=== PATIENT | male | born 1995 | race Caucasian/White ===

== ENCOUNTER 2023-08-25 18:46 | Emergency (ER) | payer SELFPAY ==
--- NOTE | ~2023-08-25 | CT_ITS ---
Examination: CT brain and CT cervical spine without contrast. CLINICAL INDICATION: Fall, head strike. COMPARISON: None. TECHNIQUE: 5 mm thin axial and reformatted 2 mm thin sagittal and coronal images of brain were obtained. Subsequently axial 3 mm thin and reformatted 2 mm thin sagittal coronal images of cervical spine were obtained. DLP 595. This CT examination was performed using dose optimization technique as appropriate, variously including the following: Automated exposure control Adjustment of MA and/or KV according to patient size(this includes techniques or standardized protocols for targeted exams where dose is matched to indication/reason for exam; extremities or head. Use of iterative reconstruction techniques. FINDINGS: Brain: There is no acute intra-axial, extra-axial bleed, masses or midline shift. There is no acute infarct or lesion. There is no edema. The lateral ventricles are symmetrical in size and configuration without enlargement. The sylvester to white matter differentiation is maintained normal. Bone windows reveal no calvarial abnormality. There is no scalp soft tissue abnormality. Bilateral paranasal sinuses and mastoid air cells are well-aerated. There is no scalp soft tissue abnormality. Cervical spine: There is normal cervical lordosis. The vertebral heights, alignment and disc heights are normal. The craniovertebral junction and the C1-C2 alignment is normal. There is no visible acute fracture, dislocation or subluxation seen. The prevertebral and paravertebral soft tissues are normal. The TM joints are normal. The prevertebral and paravertebral soft tissues are normal. The airway is widely patent. The lung apices are clear. CT/CT cervical spine wo IV con IMPRESSION: 1. No acute intracranial process seen. 2. There is no acute fracture, dislocation or subluxation in cervical spine.
--- NOTE | ~2023-08-25 | CT_ITS ---
Examination: CT chest, abdomen and pelvis with IV contrast. CLINICAL INDICATION: Trauma. COMPARISON: None. TECHNIQUE: 5 mm thin axial and reformatted 3 mm thin sagittal and coronal images of chest, abdomen and pelvis were obtained following IV 100 mL Omnipaque 350. DLP This CT examination was performed using dose optimization technique as appropriate, variously including the following: Automated exposure control Adjustment of MA and/or KV according to patient size(this includes techniques or standardized protocols for targeted exams where dose is matched to indication/reason for exam; extremities or head. Use of iterative reconstruction techniques. CHEST: Left mediastinum: The thoracic aorta is well opacified and is normal caliber without aneurysm or dissection. There is a three-vessel branching of the arch. The pulmonary artery is normal size with no gross abnormality seen however limited. The heart size is normal. Central trachea and the bronchi widely patent. Thyroid lobes are symmetrical and normal. No mediastinal mass or hematoma seen. No abnormal lymph nodes. LUNGS: The lungs are well-expanded without consolidation or contusion or mass. Pleura: There is no pleural effusion, thickening or pneumothorax. Axilla: No abnormal size axillary lymph nodes seen. The chest wall appears unremarkable. Osseous structures: No evidence of rib fracture. No bony abnormality. Abdomen and pelvis: Liver, ducts and gallbladder: The liver is normal size, contour and mildly attenuated. No focal lesion or laceration. Spleen: Unremarkable. Pancreas: Unremarkable. Adrenal glands: Unremarkable. Kidneys and ureters: Both kidney nephrograms are normal size, position. No radiopaque renal calculi seen. There is no hydronephrosis. No no perinephric stranding. Lymphovascular structures: The abdominal aorta is normal caliber. No abnormal size retroperitoneal lymph nodes seen. No hematoma noted. GI tract: The visualized colon and the small bowel loops are unremarkable. Abdominal wall: Unremarkable. Pelvis: The bladder is distended and appears unremarkable.. No free fluid. Osseous structures: No aggressive lytic or sclerotic process seen. CT/CT abdomen pelvis w IV con IMPRESSION: 1. No acute process seen in the chest, abdomen or pelvis. 2. No rib fractures seen. 3. Unremarkable CT chest, abdomen and pelvis exam.
--- NOTE | ~2023-08-25 | XR_ITS ---
EXAMINATION: XR CHEST CLINICAL INFORMATION: Fall. COMPARISON: None available. TECHNIQUE: Frontal view of the chest was obtained. FINDINGS: No significant abnormality is noted involving the heart, lungs, mediastinum, bony thorax or soft tissues. XR/XR chest 1V IMPRESSION: Unremarkable chest examination.
[2023-08-25 18:51] VITALS: BP 149/100; PULSE 128; RESP 20; TEMP 36.8; O2SAT 96; BMI 25.1
--- NOTE | 2023-08-25 18:54 | ED.GENADULT ---
HPI - General Adult General Chief complaint: ETOH/Substance Use Stated complaint: fell down stairs, hurt back Time Seen by Provider: 08/25/23 19:01 History of Present Illness HPI narrative: Patient is a 27-year-old male status post fall down 2 flights of stairs approximately 3-4 days ago. Patient's drinks on a daily basis . Prefers to drink larger quantity of beer and Tequila. Patient denies any bowel urinary incontinence complaining of back pain. Complaining of unable to get up to his bed after drinking heavily. Complaining that he hit his head when he fell 3-4 days ago. Patient denies any fever chills. There has no nausea no vomiting. Was able to tolerate the alcoholic beverages without any difficulty. Able to move his legs. Related Data Allergies Allergy/AdvReac Type Severity Reaction Status Date / Time No Known Allergies Allergy Verified 08/25/23 18:55 Review of Systems Review of Systems: Status post fall, positive back pain Yes all other systems are reviewed and are negative [facility] Past Medical History Attestation statement: The following information was validated with the patient. Social History Social History Smoked in Last 30 Days: No Advance Directives: No Advance Directives Information Provided: No Physical Exam ED Vital Signs: Vital Signs - 24 hr 08/25/23 18:51 08/25/23 19:04 08/25/23 19:51 Temperature 98.2 F 97.2 F Pulse Rate 128 H 97 93 Respiratory Rate 20 18 16 Blood Pressure 149/100 H 133/93 H 133/95 H Pulse Oximetry 96 99 96 Oxygen Delivery Method Room Air Room Air Room Air BMI result Body Mass Index 25.1 Appearance: Alert. Oriented X3. No acute distress. Eyes: Pupils equal, round and reactive to light. ENT: Pharynx normal. There is no midface tenderness there is no malocclusion there is no montague sign there is no raccoon eyes. There has no signs of trauma to the skull Neck: Normal inspection. C-spine was immobilized secondary to alcohol and distracting injury No lymph nodes noted. No crepitus CVS: Normal heart rate and rhythm. Pulses normal. Normal S1 and S2 Respiratory: No respiratory distress. Breath sounds normal. No Wheezing. No rales. There has no chest wall tenderness elicited on palpation Abdomen: Soft and nontender. No rigidity. No distention. good BS x4 Skin: Skin warm and dry. Normal skin color. Normal skin turgor. Extremities: No lower extremity edema. Neurovascular intact to all extremities. No Lacerations. No Rash Neuro: Oriented X 3. No motor deficit. No sensory deficit. Moving all extermities. No slurred speech Course Course Course Narrative: This is an RME: Additional HPI, ROS, PE not included below will be deferred to primary provider. 27 year old male presents requesitng detox heavy drinker today multiple 25 oz beers, tequila, fireball. No si or hi. Prior to arrival patient fell down two flights of stairs hit head and cervical spine unclear if loc. Not si or hi. Abrasion to upper thoracic spine. Pain to midline cervical and thoracic. Plan- imaging Medications Administered Discontinued Medications Generic Name Dose Route Start Last Admin Trade Name Freq PRN Reason Stop Dose Admin Iohexol 100 ml 08/25/23 20:26 08/25/23 20:26 Iohexol 350 Mg/Ml 100 Ml Infus..Btl IV 08/25/23 20:27 85 ml ONCE ONE Administration Medical Decision Making Medical Decision Making [facility] Narrative: Patient grossly intoxicated. Alcohol over 300. Fell 2 days prior claims he is unable to get back to his bed there was no incontinence noted. Complaining of back pain. CT scan of the head/C-spine/chest abdomen pelvis was done. The result is pending. Patient does not want additional help in obtaining detox at this time. Has friends that is in alcoholic anonymous. Thinks that he can get help by himself. They are willing to take him home. Currently just pending the CT scan. Patient's white count is normal. Patient's LFTs are normal. Kidney functions are normal. U tox was positive for marijuana only. My interpretation patient's chest x-ray is grossly negative. Differential Diagnosis Differential Diagnoses: The differential diagnosis associated with the presentation includes Back fracture, alcohol intoxication, dehydration Admission/Observation Consideration of admission/observation: Escalation of care including admission/observation considered Lab Data [facility] Lab Attestation statement: I reviewed the patient's lab results. 08/25/23 19:11 08/25/23 19:10 Labs: Lab Results 08/25/23 08/25/23 08/25/23 Range/Units 19:10 19:11 19:54 WBC 7.1 (4.8-10.8) X10*3/uL RBC 5.29 (4.60-5.80) X10*6/uL Hgb 15.9 (14.0-18.0) g/dl Hct 44.5 (42.0-52.0) % MCV 84.1 (80.0-98.0) fL MCH 30.1 (27.0-33.0) pg MCHC 35.7 (31.0-36.0) g/dl RDW 12.4 (11.0-16.0) % Plt Count 280 (160-400) X10*3/uL MPV 8.7 L (9.4-12.4) fL Immature Gran % (Auto) 0.3 (0.0-0.4) % Neut % (Auto) 53.9 (45-73) % Lymph % (Auto) 33.5 (20-40) % [place] % (Auto) 11.3 H (2-11) % Eos % (Auto) 0.4 (0-4) % Baso % (Auto) 0.6 (0-2) % Lymph # (Auto) 2.4 (1.2-4.9) X10*3/uL [place] # (Auto) 0.8 (0.1-1.2) X10*3/uL Eos # (Auto) 0.0 (0.0-0.4) X10*3/uL Baso # (Auto) 0.0 (0.0-0.2) X10*3/uL Abs Immat Gran (auto) 0.02 (0.00-0.03) X10*3/uL Absolute Neuts (auto) 3.8 (2.0-8.3) x10*3/uL Absolute Nucleated RBC 0.000 (0.0-0.012) X10*3/uL Nucleated RBC % (auto) 0.0 (0.0-0.2) /100WBC PT 11.8 (11.1-13.3) SEC INR 1.0 (0.9-1.1) Sodium 138 (135-145) mmol/L Potassium 3.3 (3.3-5.1) mmol/L Chloride 99 (96-108) mmol/L Carbon Dioxide 25 (22-29) mmol/L Anion Gap 17 (12-20) BUN 4 L (9-16) mg/dL Creatinine 0.81 (0.5-1.4) mg/dL Estim Creat Clear Calc 134.8 Estimated GFR > 60 Random Glucose 138 H (60-115) mg/dL Calcium 9.2 (8.4-10.2) mg/dL Total Bilirubin 0.5 (0.0-1.0) mg/dL AST 38 H (5-37) U/L ALT 35 (0-40) U/L Alkaline Phosphatase 81 (39-117) U/L Total Protein 7.5 (6.5-8.0) g/dL Albumin 4.7 (3.5-5.0) g/dL Urine Opiates Screen Not Detected (Not Detect) Urine Fentanyl Screen Not Detected (Not Detect) Ur Barbiturates Screen Not Detected (Not Detect) Ur Phencyclidine Scrn Not Detected (Not Detect) Ur Amphetamines Screen Not Detected (Not Detect) U Benzodiazepines Scrn Not Detected (Not Detect) Urine Cocaine Screen Not Detected (Not Detect) U Marijuana (THC) Screen POSITIVE H (Not Detect) Ethyl Alcohol 311 H* mg/dL Independent Interpretation I performed an independent interpretation of an: Plain X-Ray (Chest x-ray is grossly negative for pneumonia pneumothorax no rib fracture) Radiology Impression Discussion of test interpretation with radiology: I have reviewed the radiologist's reading. (I reviewed radiology's reading of the chest x-ray) Independent Historian Clinical information obtained from an independent historian. History obtained from or confirmed by: Friend Social Determinants Patient?s care significantly limited by Social Determinants of Health including: Alcoholism and drug addiction in family Discharge Plan Discharge Clinical Impression: Alcoholic intoxication, Head injury Patient Disposition: Still a Patient
[2023-08-25 19:04] VITALS: BP 133/93; PULSE 97; RESP 18; O2SAT 99
--- NOTE | 2023-08-25 19:14 | PC.NURSE ---
collar applied to pt, provider at bedside
[2023-08-25 19:15] LABS: MANUAL DIFF FLAG NO
[2023-08-25 19:22] LABS: Prothrombin Time 11.8 SEC (11.1-13.3)
[2023-08-25 19:25] LABS: Basophils Percent Auto 0.6 % (0-2); Eosinophils Percent Auto 0.4 % (0-4); Hematocrit 44.5 % (42.0-52.0); Hemoglobin 15.9 g/dl (14.0-18.0); Imm Gran Abs Auto 0.02 X10*3/uL (0.00-0.03); Imm Gran Pct Auto 0.3 % (0.0-0.4); Lymphocytes Absolute Auto 2.4 X10*3/uL (1.2-4.9); Lymphocytes Percent Auto 33.5 % (20-40); Mean Corpuscular HGB Conc 35.7 g/dl (31.0-36.0); Mean Corpuscular Hemoglobin 30.1 pg (27.0-33.0); Mean Corpuscular Volume 84.1 fL (80.0-98.0); Mean Platelet Volume 8.7 fL (9.4-12.4); Monocytes Absolute Auto 0.8 X10*3/uL (0.1-1.2); Monocytes Percent Auto 11.3 % (2-11); Neutrophils Absolute Auto 3.8 x10*3/uL (2.0-8.3); Neutrophils Percent Auto 53.9 % (45-73); Platelet Count 280 X10*3/uL (160-400); Red Blood Count 5.29 X10*6/uL (4.60-5.80); Red Cell Distribution Width 12.4 % (11.0-16.0); White Blood Count 7.1 X10*3/uL (4.8-10.8)
[2023-08-25 19:28] LABS: Ethanol 311 mg/dL
[2023-08-25 19:30] LABS: Alanine Aminotransferase 35 U/L (0-40); Albumin Level 4.7 g/dL (3.5-5.0); Alkaline Phosphatase 81 U/L (39-117); Anion Gap 17 (12-20); Aspartate Amino Transferase 38 U/L (5-37); Bilirubin Total 0.5 mg/dL (0.0-1.0); Blood Urea Nitrogen 4 mg/dL (9-16); Calcium 9.2 mg/dL (8.4-10.2); Carbon Dioxide 25 mmol/L (22-29); Chloride 99 mmol/L (96-108); Creatinine Clr Calc Pharmacy 134.8; Estimated Glomerular Filt Rate > 60; Glucose Random 138 mg/dL (60-115); Potassium 3.3 mmol/L (3.3-5.1); Sodium 138 mmol/L (135-145); Total Protein 7.5 g/dL (6.5-8.0)
[2023-08-25 19:51] VITALS: BP 133/95; PULSE 93; RESP 16; TEMP 36.2; O2SAT 96
[2023-08-25 20:23] LABS: Amphetamine Screen Urine Not Detected (Not Detect); Barbiturates, Urine Not Detected (Not Detect); Benzodiazepines Screen Urine Not Detected (Not Detect); Cannabinoid Screen Urine POSITIVE (Not Detect); Cocaine Screen Urine Not Detected (Not Detect); Fentanyl, urine Not Detected (Not Detect); Opiate Screen Urine Not Detected (Not Detect); Phencyclidine Screen Urine Not Detected (Not Detect)
[2023-08-25] MEDS: iohexoL 350 MG/ML 100 ML INFUS..BTL IV (20:26)
[2023-08-25 22:14] VITALS: BP 136/92; BP 139/92; PULSE 93; PULSE 99; RESP 16; RESP 17; TEMP 36.7; TEMP 37.1; O2SAT 97; O2SAT 99
== END 2023-08-25 22:16 | disposition home or self-care (01) ==
PROVIDERS: Physician Assistant; Emergency Provider Emergency Medicine Emergency Medical Services
DX: S09.90XA Unspecified injury of head, initial encounter (principal); R07.89 Other chest pain; M54.2 Cervicalgia; R10.2 Pelvic and perineal pain; F10.129 Alcohol abuse with intoxication, unspecified; Y90.8 Blood alcohol level of 240 mg/100 ml or more; W10.9XXA Fall (on) (from) unspecified stairs and steps, initial encounter; Y93.9 Activity, unspecified; Y92.9 Unspecified place or not applicable; Y99.8 Other external cause status; Z79.899 Other long term (current) drug therapy
CPT/HCPCS: 36415; 70450; 71045; 71260; 72125; 74177; 80053; 80307; 85025; 85610; 99284; Q9967